=== PATIENT | male | born 1965 | race Caucasian/White ===

== ENCOUNTER 2016-08-10 08:25 | Emergency (ER) | payer MEDICAID, OTHER ==
[~2016-08-10] VITALS: Ht 180.3 cm; Wt 102.3 kg
[~2016-08-10 08:25] MED LIST: BACL10TA PO; BUSP10TA3 PO; FOLI1TAB15 PO; FURO20 PO; LACT30L PO; LEVE500T53 PO; MULT1TAB66 PO; OMEP20CA10 PO; SPIR50 PO; THIA100T78 PO
[2016-08-10] MEDS ORDERED: RIFAX550 PO (08:37)
[2016-08-10] MEDS ORDERED: TRAZ-147 PO (08:37)
[2016-08-10] MEDS ORDERED: PROZ10 PO (08:37)
[2016-08-10] MEDS ORDERED: GABA-531 PO (08:37)
[2016-08-10] MEDS ORDERED: MIDO2.5 PO (08:37)
[2016-08-10] MEDS ORDERED: DOXY25SU3 PO (08:37)
[2016-08-10] MEDS ORDERED: MAGOX PO (08:37)
[2016-08-10 08:52] LABS: HEMATOCRIT 34.9 % (41-53); HEMOGLOBIN 11.7 g/dL (13.5-17.5); LYMPHOCYTES # (AUTO) 1.4 K/uL (1.0-4.8); LYMPHOCYTES % (AUTO) 26.3 % (22.0-44.0); MEAN CORPUSCULAR HEMOGLOBIN 30.2 pg (26.0-34.0); MEAN CORPUSCULAR HGB CONC 33.4 G/dL (31.0-37.0); MEAN CORPUSCULAR VOLUME 91 fL (80-100); MONOCYTES # (AUTO) 0.7 K/uL (0.1-1.0); MONOCYTES % (AUTO) 13.7 % (2.0-9.0); PLATELET COUNT (AUTO) 74 K/uL (150-450); RED BLOOD CELL COUNT(AUTO) 3.86 MIL/uL (4.50-5.90); RED CELL DISTRIBUTION WIDTH 20.9 % (11.5-14.5); WHITE BLOOD COUNT (AUTO) 5.2 K/uL (4.5-11.0)
[2016-08-10 09:00] LABS: ANION GAP 10 mmol/L (8-16); CARBON DIOXIDE 27 mmol/L (22-29); CHLORIDE 107 mmol/L (98-107); CREATININE 0.83 mg/dL (0.60-1.30); GLOMERULAR FILTR. RATE CALC > 60 mL/min (>60); POTASSIUM 3.5 mmol/L (3.5-5.1); SODIUM SERUM 144 mmol/L (136-145); UREA NITROGEN, BLOOD 7 mg/dL (7-18)
[2016-08-10 09:05] LABS: ALANINE AMINOTRANSFERASE 57 U/L (12-78); ASPARTATE AMINOTRANSFERASE 91 U/L (15-37); BILIRUBIN,TOTAL 3.4 mg/dL (0.1-1.0); TOTAL PROTEIN, SERUM 7.4 g/dL (6.4-8.2)
[2016-08-10] MEDS ORDERED: HALOPERIDOL 5 MG TABLET PO ONE (09:15)
[2016-08-10 09:17] LABS: RBC MORPHOLOGY COMMENT ABNORMAL RBC MORPH
[2016-08-10 11:03] VITALS: BP 110/69
== END 2016-08-10 12:20 | disposition home or self-care (01) ==
LOC: EMS 08:27
DX: F10.229 Alcohol dependence with intoxication, unspecified (principal); Y90.8 Blood alcohol level of 240 mg/100 ml or more; F32.9 Major depressive disorder, single episode, unspecified; Z88.8 Allergy status to other drugs, medicaments and biological substances
CPT/HCPCS: 36415; 80053; 80307; 85025; 99285; G0480